=== PATIENT | female | born 1990 | race Caucasian/White ===

== ENCOUNTER 2018-12-24 07:59 | Emergency (ER) | payer BC, SELFPAY ==
[2018-12-24] MEDS ORDERED: LEVALBUTEROL 1.25 MG/3 ML NEB ONE (08:19)
[2018-12-24 08:20] LABS: Urine Blood 2+ (NEG); Urine Glucose NEGATIVE (NEG); Urine Protein NEGATIVE (NEG); Urine pH 6.5 (5.0-7.0)
[2018-12-24] MEDS ORDERED: ONDANSETRON 4 MG/2 ML VIAL ONE (08:20)
[2018-12-24] MEDS ORDERED: MORPHINE 4 MG/ML SYR ONE (08:20)
[2018-12-24 08:48] LABS: Absolute Lymphocytes (CBC) 1.5 K/uL (0.7-4.9); Basophils % 1.1 % (0-1.3); Hematocrit 34.4 % (36.0-45.0); Lymphocytes % 27.2 % (15.3-44.8); MPV 8.2 fL (7.6-11.3); RBC Red Blood Cell Count 4.64 M/uL (3.86-4.86)
[2018-12-24 09:07] LABS: ALT/SGPT 31 U/L (12-78); AST/SGOT 15 U/L (15-37); Albumin 3.4 g/dL (3.4-5.0); Alkaline Phosphatase 89 U/L (45-117); BUN Blood Urea Nitrogen 7 mg/dL (7-18); Bicarbonate 25 mmol/L (21-32); Bilirubin Direct 0.1 mg/dL (0-0.2); Bilirubin Total 0.6 mg/dL (0.2-1.0); Glucose Level 90 mg/dL (74-106); NT PRO-BNP 30 pg/mL (<125); Protein, Total 7.7 g/dL (6.4-8.2); Sodium Level 143 mmol/L (136-145); Troponin (Emerg Dept Use Only) < 0.02 ng/mL (0.0-0.045)
--- NOTE | 2018-12-24 09:12 | RAD REPORT ---
EXAM DESCRIPTION: Prakash Single View12/24/2018 9:05 am CLINICAL HISTORY: Chest pain COMPARISON: 2014 FINDINGS: Left lateral base is hazy The remainder of the lungs appear clear The heart is normal size IMPRESSION: Left lateral base is hazy which may be secondary to overlying soft tissue or infiltrate. PA and lateral chest series recommended
--- NOTE | 2018-12-24 10:39 | RAD REPORT ---
EXAM DESCRIPTION: CT - Chest For Pe Angio - 12/24/2018 10:31 am CLINICAL HISTORY: Chest pain. CHEST PAIN COMPARISON: No comparisons TECHNIQUE: CT angiogram of the pulmonary arteries was performed with MIP. All CT scans are performed using dose optimization technique as appropriate and may include automated exposure control or mA/KV adjustment according to patient size. FINDINGS: No evidence of pulmonary thromboembolism. No acute aortic finding demonstrated. The lungs are clear. No significant pericardial or pleural fluid. No concerning bony finding. 13 mm right adrenal nodule is present. IMPRESSION: No evidence of pulmonary thromboembolism. No acute lung findings.
--- NOTE | 2018-12-24 10:52 | ER ---
Nurse's Notes [facility] Name: Farnaz Reyes Age: 28 yrs Sex: Female : 1990 Arrival Date: 12/24/2018 Time: 08:01 Bed 8 Private MD: Cornelius Cortes Diagnosis: Chest pain, unspecified;Pleurisy Presentation: 12/24 08:13 Presenting complaint: Patient states: Sudden sharp right sided chest pain and SOB while hb feeding infant this morning. Transition of care: patient was not received from another setting of care. Onset of symptoms was December 24, 2018. Risk Assessment: Do you want to hurt yourself or someone else? Patient reports no desire to harm self or others. Initial Sepsis Screen: Does the patient meet any 2 criteria? No. Patient's initial sepsis screen is negative. Does the patient have a suspected source of infection? No. Patient's initial sepsis screen is negative. Care prior to arrival: None. 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 - Social history:: Smoking status: Patient/guardian denies using tobacco. - Ebola Screening: : No symptoms or risks identified at this time. - Family history:: not pertinent. - Hospitalizations: : No recent hospitalization is reported. Screenin:32 Abuse screen: Denies threats or abuse. Denies injuries from another. Nutritional hb screening: No deficits noted. Tuberculosis screening: No symptoms or risk factors identified. Fall Risk None identified. Assessment: 08:26 General: Appears in no apparent distress. Behavior is calm, cooperative. Pain: hb Complains of pain in chest Pain does not radiate. Pain currently is 4 out of 10 on a pain scale. Quality of pain is described as sharp, Pain began suddenly. Neuro: Level of Consciousness is awake, alert, obeys commands, Oriented to person, place, time, situation. Cardiovascular: Capillary refill < 3 seconds Patient's skin is warm and dry. Respiratory: Airway is patent Respiratory effort is even, unlabored, Respiratory pattern is regular, symmetrical, Breath sounds are clear bilaterally. GI: No signs and/or symptoms were reported involving the gastrointestinal system. : No signs and/or symptoms were reported regarding the genitourinary system. EENT: No signs and/or symptoms were reported regarding the EENT system. Derm: Skin is intact, is healthy with good turgor, Skin is pink, warm \T\ dry. Musculoskeletal: No signs and/or symptoms reported regarding the musculoskeletal system. 09:30 Reassessment: Patient appears in no apparent distress at this time. Patient and/or hb family updated on plan of care and expected duration. Pain level reassessed. Patient is alert, oriented x 3, equal unlabored respirations, skin warm/dry/pink. 10:30 Reassessment: Patient appears in no apparent distress at this time. Patient and/or hb family updated on plan of care and expected duration. Pain level reassessed. Patient is alert, oriented x 3, equal unlabored respirations, skin warm/dry/pink. 11:20 Reassessment: Patient appears in no apparent distress at this time. Patient and/or hb family updated on plan of care and expected duration. Pain level reassessed. Patient is alert, oriented x 3, equal unlabored respirations, skin warm/dry/pink. Patient states symptoms have improved. Vital Signs: 08:14 BP 148 / 90; Pulse 90; Resp 14; Temp 97.8; Pulse Ox 99% on R/A; Weight 97.52 kg; Height hb 5 ft. 3 in. (160.02 cm); Pain 4/10; 09:12 BP 135 / 84; Pulse 84; Resp 15; Pulse Ox 99% on R/A; Pain 1/10; hb 10:15 BP 127 / 79; Pulse 89; Resp 15; Pulse Ox 100% on R/A; hb 11:00 BP 126 / 76; Pulse 84; Resp 15; Pulse Ox 100% on R/A; Pain 0/10; hb 08:14 Body Mass Index 38.09 (97.52 kg, 160.02 cm) ED Course: 08:01 Patient arrived in ED. rg4 08:02 Cornelius Cortes MD is Private Physician. rg4 08:05 Sathya Logan MD is Attending Physician. rn 08:08 Karen Do, RN is Primary Nurse. ph 08:14 Triage completed. hb 08:14 Arm band placed on. hb 08:16 Tasha Pérez, RN is Primary Nurse. hb 08:16 Patient has correct armband on for positive identification. Bed in low position. Call hb light in reach. Side rails up X 1. surveillance system monitor on. Pulse ox on. NIBP on. 08:16 Patient maintains SpO2 saturation greater than 95% on room air. hb 08:23 EKG done, by geotechnical field technician. reviewed by Sathya Logan MD. at1 08:28 Inserted saline lock: 20 gauge in right antecubital area, using aseptic technique. hb Blood collected. 08:29 Urine collected: clean catch specimen, clear. ms 09:06 X-ray completed. Portable x-ray completed in exam room. Patient tolerated procedure jr1 well. 09:09 XRAY Chest (1 view) In Process Unspecified. EDMS 10:32 CT Chest For PE Angio In Process Unspecified. EDMS 11:21 No provider procedures requiring assistance completed. IV discontinued, intact, hb bleeding controlled, No redness/swelling at site. Pressure dressing applied. Administered Medications: 08:31 Drug: Xopenex 1.25 mg Route: Inhalation; hb 08:31 Drug: morphine 4 mg {Note: RASS 0.} Route: IVP; Site: right antecubital; hb 08:31 Drug: Zofran 4 mg Route: IVP; Site: right antecubital; hb Outcome: 10:51 Discharge ordered by . rn 11:21 Discharged to home ambulatory, with family. hb 11:21 Condition: stable 11:21 Discharge instructions given to patient, family, Instructed on discharge instructions, follow up and referral plans. medication usage, Demonstrated understanding of instructions, follow-up care, medications. 11:23 Patient left the ED. hb Signatures: Dispatcher [employer] EDMS Coffee Ana jr1 Rosa Álvarez ms, Roman, MD MD rn Gonzales, Amanda, securities attorney EKG Tat1 Karen Do, RN RN Tasha Pérez, RN RN Kirsty Dawson rg4
--- NOTE | 2018-12-24 10:53 | EDPHYS ---
Physician Documentation [facility] Name: Farnaz Reyes Age: 28 yrs Sex: Female : 1990 Arrival Date: 12/24/2018 Time: 08:01 Bed 8 Private MD: Cornelius Cortes ED Physician Sathya Logan HPI: 12/24 08:22 This 28 yrs old Female presents to ER via Ambulatory with complaints of Chest rn Pain, Shortness Of Breath, Weakness. 08:22 The patient or guardian reports chest pain that is located primarily in the substernal rn area. The pain does not radiate. Associated signs and symptoms: Pertinent positives: shortness of breath, Pertinent negatives: abdominal pain, cough, diaphoresis, dizziness, lightheadedness, nausea, near syncope, palpitations, recent travel, vomiting. The chest pain is described as sharp, stabbing. Duration: The patient or guardian reports multiple episodes, that are intermittent. Modifying factors: The symptoms are alleviated by nothing. the symptoms are aggravated by activity, breathing, deep breath. Severity of pain: At its worst the pain was moderate in the emergency department the pain is unchanged. The patient has not experienced similar symptoms in the past. Reports acute onset of chest pain, central, non-radiating, assoc with sob, sharp pain worse with inspiration. No hx of dvt/pe/recent surgery. No trauma. NO hemoptysis.. 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 - Social history:: Smoking status: Patient/guardian denies using tobacco. - Ebola Screening: : No symptoms or risks identified at this time. - Family history:: not pertinent. - Hospitalizations: : No recent hospitalization is reported. ROS: 08:22 Constitutional: Negative for fever, chills, and weight loss, Eyes: Negative for injury, rn pain, redness, and discharge, Neck: Negative for injury, pain, and swelling, Cardiovascular: Negative for palpitations, and edema, Respiratory: Negative for cough, wheezing Abdomen/GI: Negative for abdominal pain, nausea, vomiting, diarrhea, and constipation, MS/Extremity: Negative for injury and deformity, Skin: Negative for injury, rash, and discoloration, Neuro: Negative for headache, numbness, tingling, and seizure. Exam: 08:22 Constitutional: This is a well developed, well nourished patient who is awake, alert, rn and in no acute distress. Head/Face: Normocephalic, atraumatic. Eyes: Pupils equal round and reactive to light, extra-ocular motions intact. Lids and lashes normal. Conjunctiva and sclera are non-icteric and not injected. Cornea within normal limits. Periorbital areas with no swelling, redness, or edema. Cardiovascular: Regular rate and rhythm with a normal S1 and S2. No gallops, murmurs, or rubs. No pulse deficits. Respiratory: Lungs have equal breath sounds bilaterally, clear to auscultation. No increased work of breathing, no retractions or nasal flaring. Abdomen/GI: soft, non-tender MS/ Extremity: Pulses equal, no cyanosis. Neurovascular intact. Full, normal range of motion. Equal circumference. Neuro: Awake and alert, GCS 15, oriented to person, place, time, and situation. 08:33 ECG was reviewed by the Attending Physician. rn Vital Signs: 08:14 BP 148 / 90; Pulse 90; Resp 14; Temp 97.8; Pulse Ox 99% on R/A; Weight 97.52 kg; Height hb 5 ft. 3 in. (160.02 cm); Pain 4/10; 09:12 BP 135 / 84; Pulse 84; Resp 15; Pulse Ox 99% on R/A; Pain 1/10; hb 10:15 BP 127 / 79; Pulse 89; Resp 15; Pulse Ox 100% on R/A; hb 11:00 BP 126 / 76; Pulse 84; Resp 15; Pulse Ox 100% on R/A; Pain 0/10; hb 08:14 Body Mass Index 38.09 (97.52 kg, 160.02 cm) hb MDM: 08:05 Patient medically screened. rn 10:50 Differential diagnosis: acute pericarditis, anxiety, chest wall pain, costochondritis, rn esophagitis, gastritis, gastroesophageal reflux disease (GERD), pericarditis, pleurisy, pneumonia, pneumothorax, pulmonary embolus. Data reviewed: vital signs, nurses notes, lab test result(s), EKG, radiologic studies, CT scan, plain films, and as a result, I will discharge patient. Counseling: I had a detailed discussion with the patient and/or guardian regarding: the historical points, exam findings, and any diagnostic results supporting the discharge/admit diagnosis, lab results, radiology results, the need for outpatient follow up, to return to the emergency department if symptoms worsen or persist or if there are any questions or concerns that arise at home. Response to treatment: the patient's symptoms have markedly improved after treatment, and as a result, I will discharge patient. Special discussion: Based on the patient's history, exam, and Dx evaluation, there is no indication for emergent intervention or inpatient Tx. It is understood by the patient/guardian that if the Sx's persist or worsen they need to return immediately for re-evaluation. I discussed with the patient/guardian in detail that at this point there is no indication for admission to the hospital. It is understood, however, that if the symptoms persist or worsen the patient needs to return immediately for re-evaluation. ED course: No acute findings on bloodwork, neg ct PE, improved symptoms, normal vitals, will dc home with return precautions.. 12/24 08:13 Order name: Basic Metabolic Panel; Complete Time: rn 12/24 08:13 Order name: CBC with Diff; Complete Time: rn 12/24 08:13 Order name: LFT's; Complete Time: rn 12/24 08:13 Order name: NT PRO-BNP; Complete Time: rn 12/24 08:13 Order name: Troponin (emerg Dept Use Only); Complete Time: : rn 12/24 08:13 Order name: D-Dimer; Complete Time: 09:30 rn 12/24 08:13 Order name: XRAY Chest (1 view); Complete Time: : rn 12/24 08:13 Order name: Urine Microscopic Only; Complete Time: 11:03 rn 12/24 08:14 Order name: Urine Dipstick--Ancillary (enter results); Complete Time: : bd 12/24 08:14 Order name: Urine --Ancillary (enter results); Complete Time: : bd 12/24 09:31 Order name: CT Chest For PE Angio; Complete Time: 11:03 rn 12/24 11:03 Order name: Urine Culture EDMI 12/24 08:13 Order name: IV Start; Complete Time: 08:31 rn 12/24 08:13 Order name: EKG; Complete Time: 08:15 rn 12/24 08:13 Order name: Cardiac monitoring; Complete Time: 08:17 rn 12/24 08:13 Order name: EKG - Nurse/Tech; Complete Time: 08:17 rn 12/24 08:13 Order name: Labs collected and sent; Complete Time: 08: rn 12/24 08:13 Order name: O2 Per Protocol; Complete Time: 08:17 rn 12/24 08:13 Order name: O2 Sat Monitoring; Complete Time: 08: rn 12/24 08:13 Order name: Urine Test (obtain specimen); Complete Time: 08:16 rn 12/24 08:13 Order name: Urine Dipstick-Ancillary (obtain specimen); Complete Time: 08:16 rn EC:33 Rate is 79 beats/min. Rhythm is regular. QRS Antoine is Normal. [place] interval is normal. QRS rn interval is normal. QT interval is normal. No Q waves. T waves are Normal. No ST changes noted. Clinical impression: Normal ECG. Interpreted by me. Reviewed by me. Administered Medications: 08:31 Drug: Xopenex 1.25 mg Route: Inhalation; hb 08:31 Drug: morphine 4 mg {Note: RASS 0.} Route: IVP; Site: right antecubital; hb 08:31 Drug: Zofran 4 mg Route: IVP; Site: right antecubital; Disposition: 12/24/18 10:51 Discharged to Home. Impression: Chest pain, unspecified, Pleurisy. - Condition is Stable. - Discharge Instructions: Nonspecific Chest Pain, Chest Wall Pain, Pain Without a Known Cause, Pleurisy. - Medication Reconciliation Form, Thank You Letter, Antibiotic Education, Prescription Opioid Use form. - Follow up: Private Physician; When: As needed; Reason: Recheck today's complaints, Re-evaluation by your physician. - Problem is new. - Symptoms have improved. Signatures: Dispatcher [employer] [facility] Sathya Logan MD MD rn Baxter, Heather, RN RN hb Corrections: (The following items were deleted from the chart) 11:23 10:51 12/24/2018 10:51 Discharged to Home. Impression: Chest pain, unspecified; hb Pleurisy. Condition is Stable. Forms are Medication Reconciliation Form, Thank You Letter, Antibiotic Education, Prescription Opioid Use. Follow up: Private Physician; When: As needed; Reason: Recheck today's complaints, Re-evaluation by your physician. Problem is new. Symptoms have improved. rn
[2018-12-24 10:57] LABS: Urine Bacteria <20 /HPF (<20); Urine Culture Reflex Order REFLEXED; Urine RBC <5 /HPF (NONE SEEN)
[2018-12-24 10:58] LABS: Urine Mucus 1+ /HPF (NONE SEEN)
[2018-12-24 11:31] VITALS: TEMP 97.8
[2018-12-24 11:34] VITALS: O2SAT 100
[2018-12-24 11:35] VITALS: BP 126/76
--- NOTE | 2018-12-24 20:21 | EKG ---
Test Date: 2018-12-24 Test Time: 08:13:38 Supervisor Bindery: BAL MEASUREMENT RESULTS: Intervals: Rate: 79 NJ: 132 QRSD: 82 QT: 374 QTc: 428 [place]: P: -11 NJ: 132 QRS: 84 T: 38 INTERPRETIVE STATEMENTS: Normal sinus rhythm Normal ECG No previous ECG available for comparison Electronically Signed On 12-24-18 20:18:53 CDT by Ricardo Bhandari
== END 2018-12-24 11:23 | disposition home or self-care (01) ==
LOC: ER 07:59
DX: R09.1 Pleurisy (principal)
CPT/HCPCS: 36415; 71045; 71275; 80048; 80076; 81003; 81015; 81025; 83880; 84484; 85025; 85379; 87086; 87088; 93005; 96374; 96375; 99285; J2405; Q9967